=== PATIENT | male | born 1995 | race Caucasian/White ===

== ENCOUNTER 2017-12-26 17:02 | Emergency (ER) | payer SELFPAY ==
[2017-12-26 19:49] VITALS: BP 139/63
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
== END 2017-12-26 19:49 | disposition home or self-care (01) ==
LOC: ED 17:02
DX: T26.91XA Corrosion of right eye and adnexa, part unspecified, initial encounter (principal); Y92.9 Unspecified place or not applicable
CPT/HCPCS: 99282